=== PATIENT | female | born 1990 | race Caucasian/White ===

== ENCOUNTER 2019-09-27 08:35 | Emergency (ER) | payer OTHER ==
--- NOTE | 2019-09-27 09:23 | EDM.PDOC ---
ED HPI GENERAL MEDICAL PROBLEM - General Chief Complaint: General Stated Complaint: CUT FINGER Time Seen by Provider: 09/27/19 09:00 Source of Information: Reports: Patient History Limitations: Reports: No Limitations - History of Present Illness INITIAL COMMENTS - FREE TEXT/NARRATIVE: 29 YO YASIR PRESENTS TO ER WITH LEFT INDEX FINGERTIP AVULSION INJURY. PT REPORTS SHE WAS KNITTING AND USING A CUTTING BLADE AND ACCIDENTALLY TOOK OFF THE LATERAL ASPECT OF LEFT FINGERTIP. PT REPORTS BLEEDING WAS CONTROLLED WITH PRESSURE TO WOUND. PT HAS NO SUTURABLE AREA THE AVULSION INJURY HAS NO FLAP. PT DENIES ANY OTHER INJURY. PT REPORTS WOUND IS NEUROVASCULARLY INTACT WITH NORMAL MOTOR FUNCTION. 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 [No Known Home Meds] 09/27/19 [History] Past Medical History HEENT History: Reports: Impaired Vision - Infectious Disease History Infectious Disease History: Reports: Chicken Pox Social & Family History - Tobacco Use Smoking Status *Q: Never Smoker Second Hand Smoke Exposure: Yes - Caffeine Use Caffeine Use: Reports: Soda - Recreational Drug Use Recreational Drug Use: No ED ROS GENERAL - Review of Systems Review Of Systems: See Below Constitutional: Reports: No Symptoms HEENT: Reports: No Symptoms Respiratory: Reports: No Symptoms Cardiovascular: Reports: No Symptoms Endocrine: Reports: No Symptoms GI/Abdominal: Reports: No Symptoms : Reports: No Symptoms Musculoskeletal: Reports: No Symptoms Skin: Reports: Wound (AVULSION INJURY TO LEFT FINGERTIP) Neurological: Reports: No Symptoms ED EXAM, GENERAL - Physical Exam Exam: See Below Exam Limited By: No Limitations General Appearance: Alert, WD/WN, No Apparent Distress Throat/Mouth: Normal Inspection, Normal Lips, Normal Teeth, Normal Gums, Normal Oropharynx, Normal Voice, No Airway Compromise Head: Atraumatic, Normocephalic Neck: Normal Inspection, Supple, Non-Tender, Full Range of Motion Respiratory/Chest: No Respiratory Distress, Lungs Clear, Normal Breath Sounds, No Accessory Muscle Use, Chest Non-Tender Cardiovascular: Normal Peripheral Pulses, Regular Rate, Rhythm, No Edema, No Gallop, No JVD, No Murmur, No Rub GI/Abdominal: Normal Bowel Sounds, Soft, Non-Tender, No Organomegaly, No Distention, No Abnormal Bruit, No Mass Back Exam: Normal Inspection, Full Range of Motion, NT Extremities: Normal Range of Motion, No Pedal Edema, Normal Capillary Refill Neurological: Alert, Oriented, CN II-XII Intact, Normal Cognition, Normal Gait, Normal Reflexes, No Motor/Sensory Deficits Psychiatric: Normal Affect, Normal Mood Skin Exam: Warm, Dry, Normal Color, No Rash, Wound/Incision (AVULSION INJURY TO LEFT INDEX FINGERTIP) Course - Vital Signs Last Recorded V/S: Last Vital Signs Temp 36.6 C 09/27/19 08:45 Pulse 93 09/27/19 08:45 Resp 18 09/27/19 08:45 BP 122/80 09/27/19 08:45 Pulse Ox 98 09/27/19 08:45 - Orders/Labs/Meds Orders: Active Orders 24 hr Category Date Time Status Dressing Change [Wound Care] [RC] DAILY Care 09/27/19 09:11 Ordered Departure - Departure Time of Disposition: 09:23 Disposition: Home, Self-Care 01 Condition: Good Clinical Impression: Avulsion of fingertip Qualifiers: Encounter type: initial encounter Qualified Code(s): S61.209A - Unspecified open wound of unspecified finger without damage to nail, initial encounter - Discharge Information Instructions: Wound Care, Adult Referrals: Tiffanie Corona PA-C [Primary Care Provider] - Forms: ED Department Discharge Additional Instructions: 1. DISCHARGE HOME 2. TETANUS UTD PER PATIENT 3. DAILY WOUND CHANGES- KEEP CLEAN AND DRY 4. FOLLOW UP IN 2 DAYS FOR RECHECK OF WOUND 5. RETURN TO ER FOR WORSENING SYMPTOMS 6. WOUND CARE INSTRUCTIONS GIVEN Sepsis Event Note (ED) - Evaluation Sepsis Screening Result: No Definite Risk - Focused Exam Vital Signs: Vital Signs Temp Pulse Resp BP Pulse Ox 09/27/19 08:45 36.6 C 93 18 122/80 98 - My Orders Last 24 Hours: My Active Orders 09/27/19 09:11 Dressing Change [Wound Care] [RC] DAILY - Assessment/Plan Last 24 Hours: My Active Orders 09/27/19 09:11 Dressing Change [Wound Care] [RC] DAILY Assessment:: 1. AVULSION INJURY TO LEFT INDEX FINGERTIP Plan: 1. DISCHARGE HOME 2. TETANUS UTD PER PATIENT 3. DAILY WOUND CHANGES- KEEP CLEAN AND DRY 4. FOLLOW UP IN 2 DAYS FOR RECHECK OF WOUND 5. RETURN TO ER FOR WORSENING SYMPTOMS 6. WOUND CARE INSTRUCTIONS GIVEN
== END 2019-09-27 09:30 | disposition home or self-care (01) ==
LOC: KA.ED 08:35
DX: S61.201A Unspecified open wound of left index finger without damage to nail, initial encounter (principal); Z77.22 Contact with and (suspected) exposure to environmental tobacco smoke (acute) (chronic); W26.8XXA Contact with other sharp object(s), not elsewhere classified, initial encounter
CPT/HCPCS: 99283